=== PATIENT | female | born 1955 | race Caucasian/White ===

== ENCOUNTER 2017-11-08 15:07 | Inpatient (IN) ==
[2017-11-08] MEDS ORDERED: 0.9 % Sodium Chloride 1,000 ML IVC ONE (15:19)
[2017-11-08] MEDS ORDERED: Ondansetron 4 MG/2 ML VIAL IVP ONE (15:35)
[2017-11-08] MEDS ORDERED: *HR* FentaNYL (PF) 100 MCG/2 ML VIAL IVP ONE (15:36)
--- NOTE | 2017-11-08 15:41 | Emergency Department Note ---
Disposition Clinical Impression: Hypotension, Dehydration Disposition: Admitted As Inpatient Condition: Fair General Adult HPI - General Chief complaint: ED General Medical Stated complaint: Hypotension Time Seen by Provider: 11/08/17 15:19 Source: patient, family Limitations: physical limitation Nursing Notes Reviewed: Yes Vital Signs Reviewed: Yes - History of Present Illness Pain Scale: 8 - Related Data Home Medications Medication Instructions Recorded Confirmed Omeprazole 40 mg PO DAILY 01/23/16 11/08/17 Simvastatin [Zocor] 40 mg PO HS 01/23/16 11/08/17 Acetaminophen [Tylenol] 650 mg PO Q4HR PRN 07/23/17 11/08/17 Docusate [Colace] 100 mg PO BID 07/23/17 11/08/17 Metoprolol [Lopressor] 12.5 mg PO BID 07/23/17 11/08/17 FLUoxetine HCl [Prozac] 20 mg PO DAILY 08/09/17 11/08/17 OxyCODONE Immed Rel [Roxicodone 10 10 mg PO BID 11/08/17 11/08/17 MG] diazePAM [Valium] 5 mg PO BID PRN 11/08/17 11/08/17 Previous Rx's Medication Instructions Recorded Cyanocobalamin (B-12) [Vitamin B12] 1,000 mcg PO DAILY #30 tablet 08/06/17 Dexamethasone [Decadron] 4 mg PO Q12HR #60 tablet 08/06/17 LevETIRAcetam [Keppra] 500 mg PO Q12HR #60 tablet 08/06/17 Allergies Allergy/AdvReac Type Severity Reaction Status Date / Time Amoxicillin AdvReac Itching Verified 11/08/17 15:10 Past Medical History - Past Medical History Medical history: Reports: cancer, DVT, GERD, hyperlipidemia, hypertension, migraine, seizures, valvular heart disease, other Surgical history: Reports: hysterectomy, other 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: Reports: endometriosis, bilateral tubal ligation - Social History Smoking Status: Former smoker Smokeless Tobacco Status: No Alcohol use: Reports: rarely Drug use: Reports: marijuana Physical Exam - General Limitations: physical limitation General appearance: alert, in no apparent distress Course Vital Signs Temperature 98.1 F 11/08/17 15:08 Pulse Rate 86 11/08/17 15:08 Respiratory Rate 18 11/08/17 15:08 Blood Pressure 90/65 11/08/17 15:08 O2 Sat by Pulse Oximetry 97 11/08/17 15:08 Temperature 98.1 F 11/08/17 15:23 Pulse Rate 66 11/08/17 17:50 Respiratory Rate 15 11/08/17 17:56 Blood Pressure 98/57 11/08/17 17:56 O2 Sat by Pulse Oximetry 93 11/08/17 17:50 Oxygen Delivery Oxygen Delivery Room Air Medical Decision Making - MDM Narrative Medical decision making narrative: 1521 hrs.: Patient in EKG, shows a sinus rhythm, rate 72, QRS is 94, QTC is 398 , does have flipped complexes in leads 3 and aVF, compared this to an EKG done in October and shows no changes except for rate. 1637 hrs.: Patient's labs looked pretty good. Were not bring her in for failure to thrive dehydration and glioblastoma. Family and patient agreement with this plan. - Lab Data Result diagrams: 11/08/17 15:35 11/08/17 15:35 Lab Results 11/08/17 11/08/17 11/08/17 Range/Units 15:35 15:35 15:59 WBC 7.8 (4.3-11.1) K/mcL RBC 4.09 (3.82-4.97) M/mcL Hgb 12.1 (11.5-15.4) g/dL Hct 36.1 (35.3-44.9) % MCV 88.3 (83.0-100.0) fL MCH 29.6 (28.0-33.3) pg MCHC 33.5 (31.6-35.5) g/dL RDW 14.8 H (11.5-14.5) % Plt Count 179 (140-400) K/mcL MPV 10.3 (9.4-12.4) fL Immature Gran % 1.7 (0-4) % Seg Neutrophils % 83.8 % Lymphocytes % 7.6 % Monocytes % 6.8 % Eosinophils % 0.1 % Basophils % 0.0 % Neutrophils # 6.5 (1.6-8.9) K/mcL Lymphocytes # 0.6 (0.6-4.6) K/mcL Monocytes # 0.5 (0.0-1.3) K/mcL Eosinophils # 0.0 (0.0-0.6) K/mcL Basophils # 0.0 (0.0-0.2) K/mcL Sodium 138 (136-145) mEq/L Potassium 3.9 (3.5-5.1) mEq/L Chloride 108 H (98-107) mEq/L Carbon Dioxide 23 (23-29) mEq/L BUN 41 H (8-23) mg/dL Creatinine 1.20 (0.60-1.20) mg/dL Est GFR ( Amer) 55 L (> 60) Est GFR (Non-Af Amer) 46 L (> 60) BUN/Creatinine Ratio 34 H (6-26) Glucose 113 H (70-105) mg/dL Calculated Osmolality 297 (280-300) Calcium 9.2 (8.6-10.3) mg/dL Total Bilirubin 0.5 (0.3-1.0) mg/dL AST 11 L (13-39) Units/L ALT 12 (7-52) Units/L Alkaline Phosphatase 44 (34-104) Units/L Serum Total Protein 5.6 L (6.4-8.9) g/dL Albumin 3.6 (3.5-5.7) g/dL Globulin 2.0 L (2.4-3.5) g/dL Albumin/Globulin Ratio 1.8 (1.1-2.2) Urine Color Yellow (Yellow) Urine Clarity Clear (Clear) Urine pH 5.0 (5.0-8.0) pH Units Ur Specific [place] 1.023 (1.010-1.025) Urine Protein Negative (Neg-Trace) mg/dL Urine Glucose (UA) Normal (Normal) mg/dL Urine Ketones Negative (Negative) mg/dL Urine Blood Negative (Negative) Urine Nitrite Negative (Negative) Urine Bilirubin Negative (Negative) Urine Urobilinogen Normal (Normal) mg/dL Ur Leukocyte Esterase Negative (Negative) Ur Culture Indicated? NO (NO) Attestation Statement - Attestation Attestation: This documentation is done with the assistance of Dragon dictation. Despite efforts made to ensure accuracy, there may be inaccuracies in circular clerk or spelling and typographical errors. I examined this patient and my medical decision-making was reviewed with the Resident Physician. I agree with the documented findings, disposition and treatment plan as described except to the extent set forth below. Patient seen and evaluated by Dr. Ventura and myself, I agree with her evaluation and management plan, supervise care the patient's stay. Patient presents today with dehydration. She has a glioblastoma, follows here and at [facility]. He is getting radiation and chemotherapy. Chemotherapy is orally no IV. He said this is the third time she has had dehydration. She does not drink or eat because she does not taste anything and thinks things taste badly to her. She says she has a headache but otherwise has a headache. She has no acute neuro deficits. She does not have any falls. We will place an IV, hydrate her check labs and then reassess most likely she will need admission. Family is in agreement with this plan.
[2017-11-08 16:01] LABS: Eosinophils % 0.1 %; Hematocrit 36.1 % (35.3-44.9); Hemoglobin 12.1 g/dL (11.5-15.4); Immature Granulocytes % 1.7 % (0-4); Lymphocytes # 0.6 K/mcL (0.6-4.6); Lymphocytes % 7.6 %; Mean Corpuscular HGB Conc 33.5 g/dL (31.6-35.5); Mean Corpuscular Hemoglobin 29.6 pg (28.0-33.3); Mean Corpuscular Volume 88.3 fL (83.0-100.0); Mean Platelet Volume 10.3 fL (9.4-12.4); Monocytes # 0.5 K/mcL (0.0-1.3); Monocytes % 6.8 %; Neutrophils # 6.5 K/mcL (1.6-8.9); Platelet Count 179 K/mcL (140-400); Red Blood Count 4.09 M/mcL (3.82-4.97); Red Cell Distribution Width 14.8 % (11.5-14.5); Segmented Neutrophils % 83.8 %
[2017-11-08 16:07] LABS: Bilirubin,Urine Negative (Negative); Blood,Urine Negative (Negative); Clarity,Urine Clear (Clear); Color,Urine Yellow (Yellow); Glucose,Urine (UA) Normal (Normal); Ketones,Urine Negative (Negative); Leukocyte Esterase,Urine Negative (Negative); Nitrite,Urine Negative (Negative); Protein,Urine Negative (Neg-Trace); Specific Gravity,Urine 1.023 (1.010-1.025); Urobilinogen,Urine Normal (Normal)
--- NOTE | 2017-11-08 16:10 | Emergency Department Note ---
Disposition Clinical Impression: Dehydration Hypotension Qualifiers: Hypotension type: unspecified hypotension type Qualified Code(s): I95.9 - Hypotension, unspecified Disposition: Admitted As Inpatient Condition: Fair Referrals: Campos Estrada, RODGER [Primary Care Provider] - Forms: ED Satisfaction Letter, Work/School Release Time of Disposition: 16:38 General Adult HPI - General Chief complaint: ED General Medical Stated complaint: Hypotension Time Seen by Provider: 11/08/17 15:19 Source: patient, family Limitations: physical limitation Nursing Notes Reviewed: Yes Vital Signs Reviewed: Yes - History of Present Illness HPI Narrative: 61-year-old female with significant past medical history of high-grade glioblastoma diagnosed in July 2007 at [facility] presenting to the emergency Department chief complaint of dehydration, failure to thrive and hypotension. Patient has been admitted for similar symptoms multiple times in the past. Patient states after the radiation she has had no taste and does not want to eat. She is currently receiving chemotherapy and radiation. Patient denies any chest pain or shortness of breath. Pain Scale: 8 - Related Data Home Medications Medication Instructions Recorded Confirmed Omeprazole 40 mg PO DAILY 01/23/16 08/09/17 Simvastatin [Zocor] 40 mg PO HS 01/23/16 08/09/17 Acetaminophen [Tylenol] 650 mg PO Q4HR PRN 07/23/17 08/09/17 Docusate [Colace] 100 mg PO BID 07/23/17 08/09/17 Metoprolol [Lopressor] 12.5 mg PO BID 07/23/17 08/09/17 Ondansetron ODT [Zofran ODT] 8 mg PO BID 07/23/17 08/09/17 FLUoxetine HCl [Prozac] 20 mg PO DAILY 08/09/17 08/09/17 OxyCODONE/APAP 5/325 [Percocet 1 - 2 each PO Q4HR 08/09/17 08/09/17 5/325 MG] Previous Rx's Medication Instructions Recorded ALPRAZolam [Xanax 0.5 MG Tablet] 0.5 mg PO Q6H PRN 5 Days #20 tablet 08/06/17 Cyanocobalamin (B-12) [Vitamin B12] 1,000 mcg PO DAILY #30 tablet 08/06/17 Dexamethasone [Decadron] 4 mg PO Q12HR #60 tablet 08/06/17 LevETIRAcetam [Keppra] 500 mg PO Q12HR #60 tablet 08/06/17 Nitrofurantoin Monohyd/M-Cryst 100 mg PO DAILY #10 capsule 08/09/17 [Macrobid 100 mg Capsule] Allergies Allergy/AdvReac Type Severity Reaction Status Date / Time Amoxicillin AdvReac Itching Verified 11/08/17 15:10 All systems ED: reviewed and negative except as stated. Constitutional: Reports: weakness. Denies: fever, chills Eyes: Reports: as per HPI ENT ED: Reports: as per HPI Cardiovascular: Denies: chest pain, palpitations Respiratory: Denies: cough, dyspnea, wheezes Gastrointestinal: Denies: abdominal pain, nausea, vomiting Genitourinary: Reports: as per HPI Musculoskeletal: Reports: as per HPI Integumentary: Denies: rash, abrasion Neurological: Reports: weakness. Denies: numbness, paresthesias Psychiatric: Reports: as per HPI Endocrine: Reports: as per HPI Hematological/Lymphatic: Reports: as per HPI Allergic/Immunologic: Reports: as per HPI Past Medical History - Past Medical History Attestation: Yes The following information was validated with the patient. 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 Absent: scleral icterus, conjunctival injection - ENT ENT exam: mucous membranes dry - Neck Neck exam: Present: normal inspection. Absent: tenderness, meningismus - Chest Chest inspection: Present: normal inspection, symmetric chest wall rise. Absent : tenderness, rash - Respiratory Respiratory exam: Present: normal lung sounds bilaterally, respiratory distress , accessory muscle use - Cardiovascular Cardiovascular exam: Present: regular rate, normal rhythm, normal heart sounds - Abdominal Exam Abdominal exam: Present: soft, tenderness (diffuse Mild tenderness to deep palpation). Absent: distention, guarding, rebound - Extremities Exam Extremities exam: Present: normal inspection, full ROM - Neurological Exam Neurological exam: Present: alert - Psychiatric Psychiatric exam: Present: normal affect - Skin Skin exam: Present: warm Course Course Narrative: 61-year-old female with history of glioblastoma presenting for dehydration and failure to thrive. Patient is alert and oriented 3 in the room. Mildly hypotensive with systolic blood pressure in the 90s. Otherwise stable vital signs. We will perform basic laboratory analysis and EKG. Disposition most likely admission for failure to thrive the pending results. Patient agrees with this plan. Family members at bedside. - Reevaluation(s) Reevaluation #1: Patient's laboratory analysis unchanged from baseline. We will plan to admit the patient at this time for failure to thrive and dehydration. Patient is alert and oriented 3 and room stable vital signs. He agrees with this plan. I spoke with the hospitalist on-call Dr. Hunter who agrees to accept the patient at this time. Vital Signs Temperature 98.1 F 11/08/17 15:08 Pulse Rate 86 11/08/17 15:08 Respiratory Rate 18 11/08/17 15:08 Blood Pressure 90/65 11/08/17 15:08 O2 Sat by Pulse Oximetry 97 11/08/17 15:08 Temperature 98.1 F 11/08/17 15:23 Pulse Rate 63 11/08/17 16:06 Respiratory Rate 18 11/08/17 15:23 Blood Pressure 96/57 11/08/17 16:06 O2 Sat by Pulse Oximetry 94 11/08/17 16:06 Oxygen Delivery Oxygen Delivery Room Air Medical Decision Making - Lab Data Result diagrams: 11/08/17 15:35 11/08/17 15:35 Lab Results 11/08/17 11/08/17 11/08/17 Range/Units 15:35 15:35 15:59 WBC 7.8 (4.3-11.1) K/mcL RBC 4.09 (3.82-4.97) M/mcL Hgb 12.1 (11.5-15.4) g/dL Hct 36.1 (35.3-44.9) % MCV 88.3 (83.0-100.0) fL MCH 29.6 (28.0-33.3) pg MCHC 33.5 (31.6-35.5) g/dL RDW 14.8 H (11.5-14.5) % Plt Count 179 (140-400) K/mcL MPV 10.3 (9.4-12.4) fL Immature Gran % 1.7 (0-4) % Seg Neutrophils % 83.8 % Lymphocytes % 7.6 % Monocytes % 6.8 % Eosinophils % 0.1 % Basophils % 0.0 % Neutrophils # 6.5 (1.6-8.9) K/mcL Lymphocytes # 0.6 (0.6-4.6) K/mcL Monocytes # 0.5 (0.0-1.3) K/mcL Eosinophils # 0.0 (0.0-0.6) K/mcL Basophils # 0.0 (0.0-0.2) K/mcL Sodium 138 (136-145) mEq/L Potassium 3.9 (3.5-5.1) mEq/L Chloride 108 H (98-107) mEq/L Carbon Dioxide 23 (23-29) mEq/L BUN 41 H (8-23) mg/dL Creatinine 1.20 (0.60-1.20) mg/dL Est GFR ( Amer) 55 L (> 60) Est GFR (Non-Af Amer) 46 L (> 60) BUN/Creatinine Ratio 34 H (6-26) Glucose 113 H (70-105) mg/dL Calculated Osmolality 297 (280-300) Calcium 9.2 (8.6-10.3) mg/dL Total Bilirubin 0.5 (0.3-1.0) mg/dL AST 11 L (13-39) Units/L ALT 12 (7-52) Units/L Alkaline Phosphatase 44 (34-104) Units/L Serum Total Protein 5.6 L (6.4-8.9) g/dL Albumin 3.6 (3.5-5.7) g/dL Globulin 2.0 L (2.4-3.5) g/dL Albumin/Globulin Ratio 1.8 (1.1-2.2) Urine Color Yellow (Yellow) Urine Clarity Clear (Clear) Urine pH 5.0 (5.0-8.0) pH Units Ur Specific [place] 1.023 (1.010-1.025) Urine Protein Negative (Neg-Trace) mg/dL Urine Glucose (UA) Normal (Normal) mg/dL Urine Ketones Negative (Negative) mg/dL Urine Blood Negative (Negative) Urine Nitrite Negative (Negative) Urine Bilirubin Negative (Negative) Urine Urobilinogen Normal (Normal) mg/dL Ur Leukocyte Esterase Negative (Negative) Ur Culture Indicated? NO (NO)
[2017-11-08 16:20] LABS: Albumin 3.6 g/dL (3.5-5.7); Albumin/Globulin Ratio 1.8 (1.1-2.2); Bilirubin,Total 0.5 mg/dL (0.3-1.0); Calcium 9.2 mg/dL (8.6-10.3); Potassium 3.9 mEq/L (3.5-5.1); Total Protein 5.6 g/dL (6.4-8.9)
[2017-11-08] MEDS ORDERED: Naloxone 0.4 MG/ML INJ IVP PRN (22:49)
[2017-11-08] MEDS ORDERED: Acetaminophen 325 MG TABLET PO PRN (23:10)
[2017-11-08] MEDS ORDERED: diazePAM 5 MG TABLET PO PRN (23:10)
[2017-11-08] MEDS: 0.9 % Sodium Chloride w KCl 20 MEQ/1,000 ML MLS IVC SCH (23:24)
[2017-11-09] MEDS: levETIRAcetam 250 MG TABLET PO SCH ×2 (05:28→17:42)
[2017-11-09] MEDS: *HR* Enoxaparin 40 MG/0.4 ML SYRINGE SQ SCH (05:29)
--- NOTE | 2017-11-09 06:30 | Internal Med History&Physical ---
Date of Encounter: 11/08/17 Time of Encounter: 23:00 Internal Medicine - H&P: HPI Chief complaint: FAILURE TO THRIVE; GLIOBLASTOMA MULTIFORME Admitted From: Home History of present illness: Ms. Michele is a 61 year old female. She was diagnosed with glioblastoma multiforme at the end of June of this year. She is getting radiation therapy; previously she got chemotherapy. He has developed the weakness. He stopped ambulating about 2 weeks ago. She reports to me decreased appetite. Denies fever and chills. Denies chest pain. Denies difficulty breathing. Denies abdominal pain, nausea and vomiting. She has no urinary symptoms. She was recently hospitalized here with similar symptoms. She had some acute kidney injury at that time. Other than glioblastoma multiform, she is treated for hypertension, hyperlipidemia and depression with anxiety. Review of systems: All 14 organ systems were reviewed by me with the patient. Positive and pertinent negative findings are listed above. The rest of organ systems is negative. Physical Exam: Skin: Free of rash and discoloration. Eyes: Sclera is white. There is no discharge from eyes. ENMT: Oral/pharyngeal mucosa is normal in appearance. There is no discharge from nose or ears. Respiratory: Normal breath sounds with no crackles and wheezes bilaterally. CV: Heart is regular with no gallop or murmur. GI: Abdomen is flat and soft with no palpable mass or visceromegaly. : There is no tenderness in patient's flanks bilaterally. Neuro exam: He has good strength in upper and lower extremities. He has normal eye movements. A/P: Failure to thrive in a patient with glioblastoma multiforme receiving radiation therapy. She has developed mild acute kidney injury. Her creatinine is 1.20; 0.85 on 08/06/17. We will give her IV fluids. We will start her on Megace. We will offer her physical therapy. Hypertension/hyperlipidemia. She is on Lopressor and Zocor. Depression with anxiety. She is on Prozac and when necessary Valium. Past Med Surg Social Fam HX - Past Medical History Medical history: cancer, DVT, GERD, hyperlipidemia, hypertension, migraine, seizures, valvular heart disease, other Additional medical history: PE,neoblastoma Psychiatric history: anxiety - Past Surgical History Surgical History: hysterectomy, other Additional surgical history: Brain byopsy - Social History Smoking Status: Former smoker Smokeless Tobacco Status: No Alcohol use: rarely Drug use: marijuana - Family History Mother Hx Family Cancer: Yes (pancreatic) Father Hx Family Cancer: Yes (skin) Internal Medicine - H&P: Meds Omeprazole 40 mg PO DAILY 01/23/16 [History] Simvastatin [Zocor] 40 mg PO HS 01/23/16 [History] Acetaminophen [Tylenol] 650 mg PO Q4HR PRN 07/23/17 [History] Docusate [Colace] 100 mg PO BID 07/23/17 [History] Metoprolol [Lopressor] 12.5 mg PO BID 07/23/17 [History] Cyanocobalamin (B-12) [Vitamin B12] 1,000 mcg PO DAILY #30 tablet 08/06/17 [Rx] Dexamethasone [Decadron] 4 mg PO Q12HR #60 tablet 08/06/17 [Rx] LevETIRAcetam [Keppra] 500 mg PO Q12HR #60 tablet 08/06/17 [Rx] FLUoxetine HCl [Prozac] 20 mg PO DAILY 08/09/17 [History] OxyCODONE Immed Rel [Roxicodone 10 MG] 10 mg PO BID 11/08/17 [History] diazePAM [Valium] 5 mg PO BID PRN 11/08/17 [History] 3 Allergy/AdvReac Type Severity Reaction Status Date / Time Amoxicillin AdvReac Itching Verified 11/08/17 15:10 - Constitutional Vitals: Temp Pulse Resp BP Pulse Ox 98.0 F 49 14 100/58 96 11/09/17 04:07 11/09/17 04:07 11/09/17 04:07 11/09/17 04:07 11/09/17 04:07 General appearance: Present: A&O X 3, no acute distress, answers questions appropriately Internal Med - H&P Results - Labs CBC & Chem 7: 11/09/17 08:07 11/09/17 08:07 - Assessment and plan (1) Failure to thrive in adult Current Visit: Yes Status: Acute (2) Glioblastoma multiforme Current Visit: Yes Status: Chronic (3) Hypertension Current Visit: No Status: Chronic Qualifiers: Hypertension type: essential hypertension Qualified Code(s): I10 - Essential (primary) hypertension (4) Depression with anxiety Current Visit: No Status: Chronic - Time Spent With Patient Total time spent is greater than 50% in coordination of care (as documented) at patient's floor/unit and/or counseling patient: Greater than 35 minutes (45 minutes)
[2017-11-09 08:24] LABS: Basophils % 0.3 %; Eosinophils % 0.3 %; Hematocrit 34.1 % (35.3-44.9); Hemoglobin 11.4 g/dL (11.5-15.4); Immature Granulocytes % 1.5 % (0-4); Lymphocytes # 0.5 K/mcL (0.6-4.6); Lymphocytes % 6.8 %; Mean Corpuscular HGB Conc 33.4 g/dL (31.6-35.5); Mean Corpuscular Hemoglobin 29.8 pg (28.0-33.3); Mean Corpuscular Volume 89.3 fL (83.0-100.0); Mean Platelet Volume 10.2 fL (9.4-12.4); Monocytes # 0.5 K/mcL (0.0-1.3); Monocytes % 6.7 %; Neutrophils # 6.5 K/mcL (1.6-8.9); Platelet Count 144 K/mcL (140-400); Red Blood Count 3.82 M/mcL (3.82-4.97); Red Cell Distribution Width 14.8 % (11.5-14.5); Segmented Neutrophils % 84.4 %
[2017-11-09 08:42] LABS: Albumin 3.3 g/dL (3.5-5.7); BUN/Creatinine Ratio 33 (6-26); Blood Urea Nitrogen 30 mg/dL (8-23); Calcium 8.8 mg/dL (8.6-10.3); Carbon Dioxide 24 mEq/L (23-29); Chloride 109 mEq/L (98-107); Glucose 91 mg/dL (70-105); Osmolality,Calculated 294 (280-300); Potassium 4.1 mEq/L (3.5-5.1); Sodium 139 mEq/L (136-145); eGFR For Non-African Americans > 60 (> 60)
[2017-11-09] MEDS ORDERED: Megestrol Acetate 400 MG/10 ML UDC PO SCH (09:00)
[2017-11-09] MEDS: *HR* OxyCODONE Immed Rel 5 MG TABLET PO SCH ×2 (09:18→20:48)
[2017-11-09] MEDS: Cyanocobalamin (B-12) 1,000 MCG TABLET PO SCH (09:18)
[2017-11-09] MEDS: FLUoxetine 20 MG CAPSULE PO SCH (09:18)
[2017-11-09] MEDS: 0.9 % Sodium Chloride w KCl 20 MEQ/1,000 ML MLS IVC SCH (09:19)
--- NOTE | 2017-11-09 13:22 | Internal Med Progress Note ---
Hospitalist Progress Note - Encounter Date of Encounter: 11/09/17 Time of Encounter: 10:15 - Subjective Interval History: Patient is currently lying in bed. Complains of headache, lightheadedness. She does feel less tired today. Denies any fevers or chills. No cough or shortness of breath. - Exam Vitals: Temp Pulse Resp BP Pulse Ox 97.7 F 95 18 111/75 94 11/09/17 10:23 11/09/17 10:23 11/09/17 10:23 11/09/17 10:23 11/09/17 10:23 Exam: General: Patient is alert, mild distress, oriented x 3 Head: atraumatic, normocephalic, Eye: normal appearance, PERRL, no scleral icterus, no conjunctival injection ENT: mucous membranes moist, normal external ear exam Neck: normal inspection, trachea midline, full ROM, no carotid bruits Chest: normal inspection, symmetric chest rise Respiratory: Good respiratory effort. Normal breath sounds. No wheezing or crackles.. Cardiovascular: Regular rate and rhythm. s1 and s2 No clicks, rubs, gallops, or murmurs. No pedal edema Abdomen: Abdomen is soft, nontender. Bowel sounds are present Skin: warm, dry, intact. Neuro: Alert oriented x 3 normal cranial nerves, She does have slight weakness in her lower extremities and numbness over her left upper extremity. Psych: Patient's affect is normal - Assessment and Plan (1) Failure to thrive in adult Current Visit: Yes Status: Acute Assessment and Plan: Likely related to glioblastoma and recent radiation therapy. Along with associated dehydration. Continue IV hydration. PTOT consult. Started on Marinol to stimulate appetite. (2) Anemia Current Visit: No Status: Acute Assessment and Plan: Hemoglobin 11.4. Continue vitamin B12 (3) Glioblastoma multiforme Current Visit: Yes Status: Chronic Assessment and Plan: Follow-up outpatient with oncology for further management. (4) Dehydration Current Visit: Yes Status: Acute Assessment and Plan: Continue IV hydration. BUN coming down. DVT Prophylaxis: On subcutaneous Lovenox - Time Spent with Patient Total time spent is greater than 50% in coordination of care (as documented) at patient's floor/unit and/or counseling patient: Plan of Care Discussed with: patient Internal Medicine: Result - Labs CBC & Chem 7: 11/09/17 08:07 11/09/17 08:07 Labs: Short CBC 11/09/17 Range/Units 08:07 WBC 7.8 (4.3-11.1) K/mcL Hgb 11.4 L (11.5-15.4) g/dL Hct 34.1 L (35.3-44.9) % Plt Count 144 (140-400) K/mcL Neutrophils # 6.5 (1.6-8.9) K/mcL BMP 11/09/17 08:07 Sodium 139 Potassium 4.1 Chloride 109 H Carbon Dioxide 24 BUN 30 H Creatinine 0.90 Glucose 91 Calcium 8.8 Liver Function 11/09/17 Range/Units 08:07 Albumin 3.3 L (3.5-5.7) g/dL Consult Discharge Plan - Plan Referrals: Campos Estrada, INSPECTOR AND MENDER [Primary Care Provider] - (2) Anemia Qualifiers: Anemia type: B12 deficiency Vitamin B12 deficiency anemia type: unspecified B12 deficiency Qualified Code(s): D51.9 - Vitamin B12 deficiency anemia, unspecified
[2017-11-09] MEDS: Ringers Solution, Lactated 1,000 ML IVC SCH (14:46)
[2017-11-10] MEDS: Ringers Solution, Lactated 1,000 ML IVC SCH (04:16)
[2017-11-10 06:00] LABS: Basophils % 0.2 %; Eosinophils % 0.2 %; Hematocrit 32.2 % (35.3-44.9); Hemoglobin 10.7 g/dL (11.5-15.4); Lymphocytes # 0.8 K/mcL (0.6-4.6); Lymphocytes % 14.1 %; Mean Corpuscular HGB Conc 33.2 g/dL (31.6-35.5); Mean Corpuscular Hemoglobin 29.6 pg (28.0-33.3); Mean Corpuscular Volume 89.2 fL (83.0-100.0); Mean Platelet Volume 10.2 fL (9.4-12.4); Monocytes # 0.5 K/mcL (0.0-1.3); Monocytes % 8.3 %; Neutrophils # 4.5 K/mcL (1.6-8.9); Platelet Count 149 K/mcL (140-400); Red Blood Count 3.61 M/mcL (3.82-4.97); Red Cell Distribution Width 14.8 % (11.5-14.5); Segmented Neutrophils % 76.2 %
[2017-11-10 06:19] LABS: BUN/Creatinine Ratio 28 (6-26); Blood Urea Nitrogen 24 mg/dL (8-23); Calcium 8.9 mg/dL (8.6-10.3); Carbon Dioxide 24 mEq/L (23-29); Chloride 112 mEq/L (98-107); Glucose 124 mg/dL (70-105); Osmolality,Calculated 295 (280-300); Sodium 140 mEq/L (136-145); eGFR For Non-African Americans > 60 (> 60)
[2017-11-10] MEDS: *HR* Enoxaparin 40 MG/0.4 ML SYRINGE SQ SCH (06:37)
[2017-11-10] MEDS: levETIRAcetam 250 MG TABLET PO SCH ×2 (06:37→16:51)
[2017-11-10] MEDS: *HR* OxyCODONE Immed Rel 5 MG TABLET PO SCH ×2 (09:03→20:19)
[2017-11-10] MEDS: Cyanocobalamin (B-12) 1,000 MCG TABLET PO SCH (09:04)
[2017-11-10] MEDS: FLUoxetine 20 MG CAPSULE PO SCH (09:04)
[2017-11-10] MEDS: *HR* OxyCODONE/APAP 5/325 TABLET PO PRN (13:23)
--- NOTE | 2017-11-10 13:59 | Internal Med Progress Note ---
Hospitalist Progress Note - Encounter Date of Encounter: 11/10/17 Time of Encounter: 13:57 - Subjective Interval History: Patient evaluated earlier today. She denies any dizziness at this time but she reports that she just woke up. She is tolerating diet well. No new complaints overnight. She does describe generalized weakness in her lower extremities and decreased strength mainly in her left upper extremity. - Exam Vitals: Temp Pulse Resp BP Pulse Ox 98.6 F 63 15 108/60 97 11/10/17 10:16 11/10/17 10:16 11/10/17 10:16 11/10/17 10:16 11/10/17 10:16 Exam: General: Patient is alert, no acute distress, oriented x 1 Head: atraumatic, normocephalic, Eye: normal appearance, PERRL, no scleral icterus, no conjunctival injection ENT: mucous membranes moist, normal external ear exam Neck: normal inspection, trachea midline, full ROM, no carotid bruits Chest: normal inspection, symmetric chest rise Respiratory: Good respiratory effort. Normal breath sounds. No wheezing or crackles.. Cardiovascular: Regular rate and rhythm. s1 and s2 No clicks, rubs, gallops, or murmurs. No pedal edema Abdomen: Abdomen is soft, nontender. Bowel sounds are present Musculoskeletal: Spontaneously moving all extremities. Skin: warm, dry, intact. Neuro: Alert oriented x 1 normal cranial nerves, decreased strength in both lower extremities and left upper extremity Psych: Patient's affect is normal - Assessment and Plan (1) Failure to thrive in adult Current Visit: Yes Status: Acute Assessment and Plan: Continue supportive care. Patient started on Marinol to stimulate appetite. Evaluated by physical therapy and recommended placement to skilled rehabilitation. child welfare worker working on placement. (2) Hypertension Current Visit: Yes Status: Chronic Assessment and Plan: Blood pressure is well controlled. (3) Depression with anxiety Current Visit: Yes Status: Chronic Assessment and Plan: Continue home medications. (4) Glioblastoma multiforme Current Visit: Yes Status: Chronic Assessment and Plan: Patient receiving radiation therapy. Continue outpatient follow-up with oncology. - Time Spent with Patient Total time spent is greater than 50% in coordination of care (as documented) at patient's floor/unit and/or counseling patient: Plan of Care Discussed with: patient Internal Medicine: Result - Labs CBC & Chem 7: 11/10/17 05:33 11/10/17 05:33 Labs: Short CBC 11/10/17 Range/Units 05:33 WBC 5.9 (4.3-11.1) K/mcL Hgb 10.7 L (11.5-15.4) g/dL Hct 32.2 L (35.3-44.9) % Plt Count 149 (140-400) K/mcL Neutrophils # 4.5 (1.6-8.9) K/mcL BMP 11/10/17 05:33 Sodium 140 Potassium 4.0 Chloride 112 H Carbon Dioxide 24 BUN 24 H Creatinine 0.85 Glucose 124 H Calcium 8.9 Consult Discharge Plan - Plan Referrals: Campos Estrada, TOWER HELPER [Primary Care Provider] - (2) Hypertension Qualifiers: Hypertension type: essential hypertension Qualified Code(s): I10 - Essential (primary) hypertension
--- NOTE | 2017-11-10 14:58 | Electrocardiograph Report ---
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
--- NOTE | 2017-11-10 16:04 | Palliative - Consult Note ---
Date of Encounter: 11/10/17 Time of Encounter: 14:45 - Assessment and Plan (1) Back pain Current Visit: Yes Status: Acute Assessment and plan: Reports back pain 7/10, described as Ache. Ordered Percocet and Oxycodone, continue PRN. Qualifiers: Back pain location: low back pain Chronicity: chronic Back pain laterality: unspecified Sciatica presence: unspecified whether sciatica present Qualified Code(s): M54.5 - Low back pain; G89.29 - Other chronic pain (2) Neck pain Current Visit: Yes Status: Acute Assessment and plan: Patient reports neck pain. Reports Oxycodone and Percocet helping; continue PRN. (3) Headache Current Visit: Yes Status: Acute Assessment and plan: Patient reports headache due to pressure in head from GBM. History of migraines. Reports history of taking Fiorcet, Percocet ordered here. Will order Benadryl and Compazine PO PRN. Qualifiers: Headache type: other headache syndrome Qualified Code(s): G44.89 - Other headache syndrome (4) Weakness Current Visit: No Status: Chronic Assessment and plan: Patient has been working with PT/OT. Desires [employer] at discharge. (5) Glioblastoma multiforme Current Visit: Yes Status: Chronic Assessment and plan: Patient has received chemo and radiation. Desires to continue cancer treatment as able at [facility]. (6) Hypotension Current Visit: Yes Status: Acute Assessment and plan: BP 91/56; managing per Primary team. Qualifiers: Hypotension type: other hypotension type Qualified Code(s): I95.89 - Other hypotension (7) Dehydration Current Visit: Yes Status: Acute Assessment and plan: Patient receiving IV Fluid. Primary team managing. (8) Failure to thrive in adult Current Visit: Yes Status: Acute Assessment and plan: Patient started on Marinol. Patient ate 20% of lunch yesterday. (9) Goals of care, counseling/discussion Current Visit: Yes Status: Acute Assessment and plan: Conducted family meeting with Patient, patient's son Malcom, and Bishop CORTEZ. Patient desire to go to [facility] at discharge for rehab then transition home. Family reports patient is not eligible for further rehab as has exhausted days. Bishop CORTEZ to evaluate. Patient's son reports patient is not eligible for Medicaid and he would be applying for Passport in order to have patient cared for at home as he works 5 days a week and his works 3 days a week. Explained services hospice and home health could offer. Patient and son considering; however, not interested at this time. Already receiving [facility] and desires further cancer treatment. Gave Hospice education material. Spoke to patient regarding CODE STATUS. Patient desires to change CODE STATUS to DNRCCA/DNI; State form completed. Notified Kiya DE LEÓN. (10) Nausea Current Visit: Yes Status: Acute Assessment and plan: Patient reports recent history of nausea, will order Zofran ODT PRN. Denies nausea during assessment. Palliative-CN HPI - Data of Consult Patient: new to practice Consult date: 11/10/17 Requesting Physician: Krista Jones MD Primary Care Provider: Campos Estrada CNP - Consult Narrative Palliative Care/Comfort Measures: Palliative care Reason for consult: GBM patient/considering hospice. History of present illness: Ms. Michele is a 61 year old female Arrived to [place] ER on 11/08/17, for hypotension; admitted for dehydration, FTT, and Hypotension. PMH: High-Grade Glioblastoma, diagnosed in July 2017 and treated per [facility] with chemo and radiation; DVT; GERD; Hyperlipidemia; HTN; Migraines; seizures; valvular heart disease; and anxiety. EKG showing: Ectopic atrial rhythm, inferior myocardial infarction of indeterminate age. Patient also reported lack of appetite due to change in taste post cancer treatment. Patient medically managed by ICU team for FTT, anemia, glioblastoma multiforme, and dehydration. Palliative care consult for GBM patient considering hospice. Patient sitting in bed with son, Malcom (Mckinley Caceres), at bedside. Patient is alert and oriented times 3. Patient reports previous history of nausea, vomiting, and constipation. Denies nausea, vomiting, constipation, and diarrhea during assessment. Patient reports head, back, and leg pain; rated a 7/10, with pain described as an ache with nothing helps. Denies anxiety during assessment , reports Valium helps with anxiety and insomnia. CC: Krista Jones MD Past Med Surg Social Fam HX - Past Medical History Medical history: cancer, DVT, GERD, hyperlipidemia, hypertension, migraine, seizures, valvular heart disease, other Additional medical history: PE,neoblastoma Psychiatric history: anxiety - Past Surgical History Surgical History: hysterectomy, other Additional surgical history: Brain byopsy - Social History Smoking Status: Former smoker Smokeless Tobacco Status: No Alcohol use: rarely Drug use: marijuana - Family History Mother Hx Family Cancer: Yes (pancreatic) Father Hx Family Cancer: Yes (skin) Medications and Allergies Omeprazole 40 mg PO DAILY 01/23/16 [History] Simvastatin [Zocor] 40 mg PO HS 01/23/16 [History] Acetaminophen [Tylenol] 650 mg PO Q4HR PRN 07/23/17 [History] Docusate [Colace] 100 mg PO BID 07/23/17 [History] Metoprolol [Lopressor] 12.5 mg PO BID 07/23/17 [History] Cyanocobalamin (B-12) [Vitamin B12] 1,000 mcg PO DAILY #30 tablet 08/06/17 [Rx] Dexamethasone [Decadron] 4 mg PO Q12HR #60 tablet 08/06/17 [Rx] LevETIRAcetam [Keppra] 500 mg PO Q12HR #60 tablet 08/06/17 [Rx] FLUoxetine HCl [Prozac] 20 mg PO DAILY 08/09/17 [History] OxyCODONE Immed Rel [Roxicodone 10 MG] 10 mg PO BID 11/08/17 [History] diazePAM [Valium] 5 mg PO BID PRN 11/08/17 [History] 3 Allergy/AdvReac Type Severity Reaction Status Date / Time Amoxicillin AdvReac Itching Verified 11/08/17 15:10 - Constitutional Constitutional ROS PAL: decreased appetite, anorexia, fatigue, frequent falls, lethargy - Cardiovascular Cardiovascular ROS: dyspnea on exertion, no chest pain with activity, no palpitations - Respiratory Respiratory: dyspnea on exertion, no dyspnea - Gastrointestinal Gastrointestinal: nausea, vomiting (denies during assessment), no abdominal pain , no change in bowel habits, no change in stool character, no coffee ground emesis, no constipation - Musculoskeletal Musculoskeletal ROS IM: back pain, muscle weakness, myalgias, neck pain - Integumentary ROS Integumentary: dry skin - Neurological Neurological ROS: confusion, memory loss, weakness - Psychiatric Psychiatric general PM: anxiety, confusion, difficulty concentrating, memory loss, no depression, no hopelessness Palliative Care-Exam - Constitutional Vitals: Temp Pulse Resp BP Pulse Ox 98.2 F 68 16 91/56 94 11/10/17 14:34 11/10/17 14:34 11/10/17 14:34 11/10/17 14:34 11/10/17 14:34 General appearance: Present: cooperative, no acute distress - Head Head Exam: Present: atraumatic, normal inspection - Eye Eye exam: Present: EOMI, normal appearance, PERRL, conjuntiva pink Pupils: Present: normal accommodation, PERRL - ENT ENT exam: Present: mucous membranes moist, normal external ear exam - Expanded ENT Exam Mouth Exam: Absent: drooling - Neck Neck exam: Present: full ROM, normal inspection. Absent: tenderness - Respiratory Respiratory exam: Present: CTAB. Absent: accessory muscle use, decreased breath sounds, respiratory distress - Cardiovascular Cardiovascular exam: Present: RRR, +S1, +S2 - Expanded Cardiovascular Exam Peripheral pulses: 2+: Radial (L), Radial (R), Posterior Tibialis (L), Posterior Tibialis (R), Dorsalis Pedis (L) PM, Dorsalis Pedis (R) PM - GI/Abdominal Exam GI/Abdominal exam: Present: hyperactive bowel sounds, soft. Absent: tenderness - Expanded GI/Abdominal Exam GI/Abdominal exam: Absent: ascites - Rectal Rectal exam: Present: deferred - Extremities Exam Extremities exam: Present: normal capillary refill, normal inspection. Absent: calf tenderness, joint swelling, pedal edema - Back Exam Back exam: Present: normal inspection - Neurological Exam Neurological exam: Present: alert, oriented X3. Absent: altered, strengths equal and symetr throughout (left side weakness) - Expanded Neurological Exam Coma Scale Eye Opening: Spontaneous Coma Scale Motor Response: Obeys Commands Coma Scale Verbal Response: Oriented Coma Scale Total: 15 - Psychiatric Psychiatric exam: Present: normal affect, normal mood - Skin Skin exam: Present: dry, intact, warm Internal Medicine - CN: Reslt - Labs CBC & Chem 7: 11/10/17 05:33 11/10/17 05:33 Labs: Short CBC 11/10/17 Range/Units 05:33 WBC 5.9 (4.3-11.1) K/mcL Hgb 10.7 L (11.5-15.4) g/dL Hct 32.2 L (35.3-44.9) % Plt Count 149 (140-400) K/mcL Neutrophils # 4.5 (1.6-8.9) K/mcL BMP 11/10/17 05:33 Sodium 140 Potassium 4.0 Chloride 112 H Carbon Dioxide 24 BUN 24 H Creatinine 0.85 Glucose 124 H Calcium 8.9 Consult Discharge Plan - Plan Referrals: Campos Estrada, [employer] [Primary Care Provider] - Palliative Quality Palliative Quality: Screen for Code Status: Yes, Screen for Goals of Care: Yes, Screen for Pain: Yes, If Pain Regimen Started, Initiate Bowel Regimen: Yes, Screen for Nausea/Vomitting: Yes
[2017-11-10] MEDS ORDERED: Ondansetron ODT 4 MG TAB.RAPDIS SL PRN (16:17)
[2017-11-11] MEDS: levETIRAcetam 250 MG TABLET PO SCH (06:14)
[2017-11-11] MEDS: *HR* Enoxaparin 40 MG/0.4 ML SYRINGE SQ SCH (06:14)
[2017-11-11] MEDS: Cyanocobalamin (B-12) 1,000 MCG TABLET PO SCH (08:26)
[2017-11-11] MEDS: *HR* OxyCODONE Immed Rel 5 MG TABLET PO SCH (08:26)
[2017-11-11] MEDS: FLUoxetine 20 MG CAPSULE PO SCH (08:26)
[2017-11-11 10:14] VITALS: BP 118/82
--- NOTE | 2017-11-11 11:14 | Discharge Summary ---
- NOTES TO OUTPATIENT PROVIDER Notes to Outpatient Provider: Patient with history of glioblastoma multiforme was hospitalized here after failing to thrive at home with decreased appetite and decreased functional activity. She was found to be dehydrated and given IV fluids. She is now doing much better. Per evaluation by physical therapy, she has been recommended placement to skilled rehabilitation. Palliative care has also been involved in her care and the patient's CODE STATUS has been changed to DNR comfort care arrest DNI. At This time she is clinically stable to be discharged to skilled rehabilitation later today. Date of Encounter: 11/11/17 Time of Encounter: 11:12 - Discharge Diagnosis (1) Failure to thrive in adult Priority: Primary Status: Acute (2) Hypertension Priority: Secondary Status: Chronic Qualifiers: Hypertension type: essential hypertension Qualified Code(s): I10 - Essential (primary) hypertension (3) Depression with anxiety Priority: Secondary Status: Chronic (4) Glioblastoma multiforme Priority: Secondary Status: Chronic Hospital course: Ms. Michele is a 61 year old female Patient with history of glioblastoma multiforme was hospitalized here after failing to thrive at home with decreased appetite and decreased functional activity. She was found to be dehydrated and given IV fluids. She is now doing much better. Per evaluation by physical therapy, she has been recommended placement to skilled rehabilitation. Palliative care has also been involved in her care and the patient's CODE STATUS has been changed to DNR comfort care arrest DNI. At This time she is clinically stable to be discharged to skilled rehabilitation later today. Discharge discussed with: patient, nurse, otm consultant - Time Spent with Patient Total time spent providing and/or coordinating discharge services: Greater than 30 minutes (35 min) - Discharge Medications Prescriptions: Ondansetron ODT [Zofran ODT] 4 mg SL Q4HR PRN #30 tab.rapdis PRN Reason: Nausea And Vomiting Dronabinol [Marinol] 2.5 mg PO BIDLS 15 Days #30 capsule Home Medications: Omeprazole 40 mg PO DAILY 01/23/16 [History] Simvastatin [Zocor] 40 mg PO HS 01/23/16 [History] Acetaminophen [Tylenol] 650 mg PO Q4HR PRN 07/23/17 [History] Docusate [Colace] 100 mg PO BID 07/23/17 [History] Metoprolol [Lopressor] 12.5 mg PO BID 07/23/17 [History] Cyanocobalamin (B-12) [Vitamin B12] 1,000 mcg PO DAILY #30 tablet 08/06/17 [Rx] Dexamethasone [Decadron] 4 mg PO Q12HR #60 tablet 08/06/17 [Rx] LevETIRAcetam [Keppra] 500 mg PO Q12HR #60 tablet 08/06/17 [Rx] FLUoxetine HCl [Prozac] 20 mg PO DAILY 08/09/17 [History] OxyCODONE Immed Rel [Roxicodone 10 MG] 10 mg PO BID 11/08/17 [History] diazePAM [Valium] 5 mg PO BID PRN 11/08/17 [History] Dronabinol [Marinol] 2.5 mg PO BIDLS 15 Days #30 capsule 11/11/17 [Rx] Ondansetron ODT [Zofran ODT] 4 mg SL Q4HR PRN #30 tab.rapdis 11/11/17 [Rx] Allergies/Adverse Reactions: 3 Allergy/AdvReac Type Severity Reaction Status Date / Time Amoxicillin AdvReac Itching Verified 11/08/17 15:10 Date of admission: 11/08/17 23:32 Primary care physician: Campos Estrada CNP Consults: 11/09/17 14:02 Consult to Occupational Therapy [CONS] Routine Comment: Evaluate, develop and implement POC Reason for Consult: Deconditioning, increased weakness, possible rehab placement Does patient have active BEDREST order?: No Is patient medically & hemodynamically stable?: Yes Patient assessed for mobility or mobilized this visit?: No 11/10/17 14:34 Consult to Palliative Care [CONS] Routine Comment: Consulting Provider: Palliative Care Aleisha Reason for Consult: GBM patient/ considering hospice Time Notified: 14:34 Call Completed: Yes Discharging clinician: Kirsta Jones Anticipated date of discharge: 11/11/17 - Constitutional Vitals: Temp Pulse Resp BP Pulse Ox 98.2 F 60 15 118/82 96 11/11/17 10:13 11/11/17 10:13 11/11/17 10:13 11/11/17 10:13 11/11/17 10:13 General appearance: Present: A&O X 3, no acute distress, answers questions appropriately - Respiratory Respiratory exam: Present: CTAB. Absent: accessory muscle use, rales, rhonchi, wheezes - Cardiovascular Cardiovascular exam: Present: RRR, +S1, +S2. Absent: diastolic murmur, gallop, rubs, systolic murmur - GI/Abdominal GI/Abdominal exam: Present: normal bowel sounds, soft, no peritoneal signs. Absent: distended, tenderness - Patient Status Disposition: Transfer [facility] Condition: Fair Functional capacity at discharge: wheelchair bound Overall status at discharge: patient is progressing back to baseline - Discharge Instructions Instructions: Failure to Thrive (DC), Dehydration (DC), Acute Kidney Injury (DC ) Follow Up With: Campos Estrada CNP [Primary Care Provider] - (in 1-2 weeks) Additional Instructions: Follow-up appointments: If there is not an appointment listed below, please call your physician and schedule a follow-up appointment. If you have congestive heart failure and your symptoms return, make an appointment with your physician. Medication List: Carry an up to date list of medications you are taking at all time. We have given you an updated medication list including any new medications that you have been prescribed. Please provide that list to your primary provider Symptoms: If your condition changes or you experience any of the following symptoms, notify your physician immediately: Unusual or worsening pain, fever, persistent nausea and vomiting, bleeding, increase in swelling (especially in your legs), sudden weight gain, extreme dizziness, chest pain, increased drainage or redness from a wound or incision. Go to the emergency department if you experience a problem with breathing. Weights: If you have a history of swelling or shortness of breath, weigh yourself daily and notify your physician if you have a weight gain of two or more pounds in one day or 5 or more pounds in a week. If you experience any of the warning signs for stroke: Sudden numbness or weakness of the face, arm or leg; especially on one side of the body, sudden confusion, trouble speaking or understanding, sudden trouble seeing in one or both eyes, sudden trouble walking, dizziness, loss of balance or coordination, sudden sever headache with no cause; Call 911 or go to the emergency room. Stroke is a medical emergency. Some risk factors for stroke: Age, cigarette smoking, diabetes, excessive alcohol consumption, family history , high blood pressure, overweight, physical inactivity, prior stroke, heart attack, diagnosis of carotid artery stenosis or other artery disease. If you smoke, STOP: Smoking or tobacco use significantly increases your risk of heart and lung disease. Your chance of disease greatly increases if you continue to smoke. For more information, call the [place] tobacco quit line for smoking cessation - QUIT-NOW ( ) - Diet and Activity Activity: as per physical therapy, increase activity as tolerated Diet: advance to your usual diet
--- NOTE | 2017-11-11 11:25 | Physician Discharge Referral ---
ExtendedCare Referral Info Provider in Charge after Transfer: PCP Institutional Level of Care: Skilled - Diagnosis (1) Failure to thrive in adult Priority: Primary Status: Acute (2) Hypertension Priority: Secondary Status: Chronic (3) Depression with anxiety Priority: Secondary Status: Chronic (4) Glioblastoma multiforme Priority: Secondary Status: Chronic Prognosis: Fair Aware of Diagnosis: Patient, Family Aware of Prognosis: Patient, Family - Transfer Medications Prescriptions: Ondansetron ODT [Zofran ODT] 4 mg SL Q4HR PRN #30 tab.rapdis PRN Reason: Nausea And Vomiting Dronabinol [Marinol] 2.5 mg PO BIDLS 15 Days #30 capsule Home Medications: Omeprazole 40 mg PO DAILY 01/23/16 [History] Simvastatin [Zocor] 40 mg PO HS 01/23/16 [History] Acetaminophen [Tylenol] 650 mg PO Q4HR PRN 07/23/17 [History] Docusate [Colace] 100 mg PO BID 07/23/17 [History] Metoprolol [Lopressor] 12.5 mg PO BID 07/23/17 [History] Cyanocobalamin (B-12) [Vitamin B12] 1,000 mcg PO DAILY #30 tablet 08/06/17 [Rx] Dexamethasone [Decadron] 4 mg PO Q12HR #60 tablet 08/06/17 [Rx] LevETIRAcetam [Keppra] 500 mg PO Q12HR #60 tablet 08/06/17 [Rx] FLUoxetine HCl [Prozac] 20 mg PO DAILY 08/09/17 [History] OxyCODONE Immed Rel [Roxicodone 10 MG] 10 mg PO BID 11/08/17 [History] diazePAM [Valium] 5 mg PO BID PRN 11/08/17 [History] Dronabinol [Marinol] 2.5 mg PO BIDLS 15 Days #30 capsule 11/11/17 [Rx] Ondansetron ODT [Zofran ODT] 4 mg SL Q4HR PRN #30 tab.rapdis 11/11/17 [Rx] Allergies/Adverse Reactions: 3 Allergy/AdvReac Type Severity Reaction Status Date / Time Amoxicillin AdvReac Itching Verified 11/08/17 15:10 - Respiratory Orders Smoking Cessation: Smoking cessation has been advised. For more information, call the [place] Tobacco Quit Line at 8-808-GHMZ-NOW. - Advance Directives Code Status: DNR-Arrest/Don't Intubate - Mobility Orders Other (per PT) - Rehabiliation Orders Rehab Potential: Fair Rehab Orders: Evaluation for Physical Therapy, Evaluation for Occupational Therapy - Diet Orders Cardiac CERTIFICATION: I certify that the transfer of the above named patient to an Extended Care Facility is necessary for the continuing treatment of the diagnosis listed. The above information is true and accurate reflection of patient's current condition. Confidential - Redisclosure prohibited without a patient's written consent.
[2017-11-11] MEDS: *HR* OxyCODONE/APAP 5/325 TABLET PO PRN (14:11)
== END 2017-11-11 14:43 | disposition other institution (70) | DRG 641 ==
LOC: 3ANU 15:07 → EMEROO 15:07 → 3ANU 18:01 → SUATTDRO 23:32
PROVIDERS: ADMIT Internal Medicine; ATTEND Internal Medicine